=== PATIENT | female | born 1945 | race African-American/Black ===

== ENCOUNTER 2020-08-20 20:03 | Emergency (ER) | payer OTHER ==
[2020-08-20 20:33] VITALS: BP 160/87; PULSE 85; TEMP 97.6; BMI 22.1
[2020-08-20] MEDS ORDERED: DIPHTH,PERTUSS(ACELL),TET 0.5 ML DISP.SYRIN IM ONE ×2 (20:40→20:46)
[2020-08-20] MEDS ORDERED: ACETAMINOPHEN 500 MG TABLET (FP) PO ONE (20:40)
[2020-08-20] MEDS ORDERED: ACETAMINOPHEN 325 MG TABLET (FP) ONE (20:45)
== END 2020-08-20 22:42 | disposition home or self-care (01) ==
LOC: JER 20:03
PROC: 0HQ2XZZ Repair Right Ear Skin, External Approach (ICD-10-PCS; principal; 2020-08-20)
PROC: 3E0234Z Introduction of Serum, Toxoid and Vaccine into Muscle, Percutaneous Approach (ICD-10-PCS; 2020-08-20)
DX: S01.311A Laceration without foreign body of right ear, initial encounter (principal)
CPT/HCPCS: 70450-TC; 72125-TC; 90471; 90715; 99284-25

== ENCOUNTER 2020-08-27 09:08 | Emergency (ER) | payer OTHER ==
[2020-08-27 09:14] VITALS: BP 163/91; PULSE 98; TEMP 98.2; BMI 22.0
== END 2020-08-27 09:52 | disposition home or self-care (01) ==
LOC: JER 09:08 → JERFT 09:08
DX: Z48.02 Encounter for removal of sutures (principal)
CPT/HCPCS: 99281-25